=== PATIENT | female | born 1985 | race Hispanic/Latino ===

== ENCOUNTER 2021-10-19 10:56 | Emergency (ER) | payer BC, OTHER ==
[~2021-10-19] VITALS: Ht 152.4 cm; Wt 65.8 kg
[2021-10-19] MEDS ORDERED: NAPROXEN500 M1 PO (12:20)
[2021-10-19] MEDS ORDERED: METHOCARBAMOL750 MG PO (12:20)
== END 2021-10-19 12:32 | disposition home or self-care (01) ==
LOC: ER 11:11
DX: S40.012A Contusion of left shoulder, initial encounter (principal); S16.1XXA Strain of muscle, fascia and tendon at neck level, initial encounter; R51.9 Headache, unspecified; V57.5XXA Driver of pick-up truck or van injured in collision with fixed or stationary object in traffic accident, initial encounter; Y92.410 Unspecified street and highway as the place of occurrence of the external cause
CPT/HCPCS: 70450; 72125; 99283